=== PATIENT | male | born 1975 | race Caucasian/White ===

== ENCOUNTER 2020-07-27 01:23 | Emergency (ER) | payer SELFPAY ==
[~2020-07-27] VITALS: Ht 175.3 cm; Wt 81.6 kg
[2020-07-27] MEDS ORDERED: CEFTRIAXONE SOD 1 GM VIAL IM ONE (01:45)
--- NOTE | 2020-07-27 01:49 | Emergency Department Note ---
History of Present Illnes History of Present Illness Chief Complaint: Skin Rash or Abscess History of Present Illness This is a 44 year old male Chief Complaint Comment PT C/O KNOT/ABSCESS TO THE MEDIAL ASPECT OF LEFT CALF, STATES ABOUT A WEEK AGO NOTICED THE AREA "LIKE A PIMPLE" HE POPPED IT AND IT OOZED FOR SEVERAL DAYS, LEG AND AANKLE WERE SWOLLEN BUT BETTER, PT STATES THE ABSESS AREA AGAIN GO BIG AND RED SO BECAME CONCERNED . Historian: Patient Arrival Mode: Car Onset (how long ago): day(s) (2) Location: left leg Quality: reddness Radiation: Denies non-radiation, Denies back, Denies neck, Denies extremity, Denies abdomen, Denies periumbilical, Denies flank, Denies proximal, Denies distal, Denies other Severity: mild Onset quality: gradual Duration (how long): day(s) (2) Timing of current episode: constant Progression: waxing and waning Chronicity: new Context: Denies recent illness, Denies recent surgery, Denies recent immobilization, Denies recent travel, Denies trauma/injury, Denies new medications, Denies hx of DVT/PE, Denies non-compliance w/ medications, Denies other Relieving factors: none Exacerbating factors: none Associated symptoms: Denies denies other symptoms, Denies confusion, Denies chest pain, Denies cough, Denies diaphoresis, Denies fever/chills, Denies headaches, Denies loss of appetite, Denies malaise, Denies nausea/vomiting, Denies rash, Denies seizure, Denies shortness of breath, Denies syncope, Denies weakness, Denies other Treatments prior to arrival: none Past Medical/Family History Physician Review I have reviewed the patient's past medical and family history. Any updates have been documented here. Past Medical History Recent Fever: No Clinical Suspicion of Infectio: No New/Unexplained Change in Ment: No Past Medical History: None Past Surgical History: None Social History Smoking Cessation: Current every day smoker Counseling Performed: No Alcohol Use: None Any Illegal Drug Use: No Physically hurt or threatened: No Review of Systems Review of Systems Constitutional: Reports no symptoms EENTM: Reports no symptoms Cardiovascular: Reports no symptoms Respiratory: Reports no symptoms; Denies as per HPI, Denies change in phlegm color, Denies chest congestion, Denies cough, Denies hemoptysis, Denies excessive phlegm production, Denies pain on inspiration, Denies pain with cough, Denies dyspnea, Denies dyspnea on exertion, Denies snoring, Denies stridor, Denies wheezing, Denies other Gastrointestinal: Reports no symptoms; Denies as per HPI, Denies abdominal pain, Denies constipation, Denies diarrhea, Denies nausea, Denies vomiting, Denies other Genitourinary: Reports no symptoms Musculoskeletal: Reports no symptoms Integumentary: Reports as per HPI Neurological: Reports no symptoms; Denies as per HPI, Denies headache, Denies numbness, Denies paresthesia, Denies pre-existing deficit, Denies seizure, Denies tingling, Denies tremors, Denies weakness, Denies other Psychological: Reports no symptoms; Denies as per HPI, Denies anxiety, Denies depressed, Denies emotional problems, Denies other Endocrine: Reports no symptoms Hematological/Lymphatic: Reports no symptoms Physical Exam Related Data Allergies: Coded Allergies: penicillin G (Verified Allergy, Unknown, 07/27/20) Triage Vital Signs Vital Signs Date Time Temp Pulse Resp B/P (MAP) Pulse Ox O2 Delivery O2 Flow Rate FiO2 07/27/20 01:30 98.4 104 18 190/100 98 Room Air Vital signs reviewed: Yes Physical Exam CONSTITUTIONAL Constitutional: Present well-developed, Present well-nourished HENT HENT: Present normocephalic, Present atraumatic, Present oropharynx clear/moist, Present nose normal; Absent oropharynx normal, Absent mucosae dry, Absent nasal discharge, Absent nasal congestion, Absent rhinorrhea, Absent oropharyngeal exudate, Absent tonsillar excudate, Absent pharynx abnormal, Absent erythema, Absent dentition normal, Absent dental caries, Absent other HENT L/R: Present left ext ear normal, Present right ext ear normal EYES Eyes: Reports PERRL, Reports conjunctivae normal; Denies EOM normal, Denies lids normal, Denies left eye discharge, Denies right eye discharge, Denies scleral icterus, Denies other NECK Neck: Present ROM normal; Absent supple, Absent thyromegaly, Absent tracheal deviation, Absent stridor, Absent JVD, Absent cervical adenopathy, Absent carotid bruit, Absent other PULMONARY Pulmonary: Present effort normal, Present breath sounds normal; Absent respiratory distress, Absent rales, Absent rhonchi, Absent chest tenderness, Absent other CARDIOVASCULAR Cardiovascular: Present regular rhythm, Present heart sounds normal, Present capillary refill normal, Present normal rate GASTROINTESTINAL Abdominal: Present soft, Present nontender, Present bowel sounds normal; Absent distension, Absent tender, Absent guarding, Absent mass, Absent rebound, Absent hernia, Absent left CVA tenderness, Absent right CVA tenderness, Absent other GENITOURINARY Genitourinary: Present exam deferred; Absent penis normal, Absent rectum normal, Absent prostate normal, Absent guaiac result, Absent penis tenderness, Absent other SKIN Skin: Present warm, Present dry, Present erythema (left leg) MUSCULOSKELETAL Musculoskeletal: Present ROM normal; Absent edema, Absent deformity, Absent tenderness, Absent swelling, Absent other NEUROLOGICAL Neurological: Present alert, Present oriented x 3, Present no gross motor or sensory deficits; Absent DTRs normal, Absent cranial nerve deficit, Absent sensory deficit, Absent abnormal DTRs, Absent abnormal coordination, Absent abnormal gait, Absent weakness, Absent other PSYCHOLOGICAL Psychological: Present mood/affect normal, Present judgement normal Assessment & Plan Medical Decision Making MDM cellulitis erysipelis Reassessment Reassessment time: 01:48 Reassessment same Assessment & Plan Final Impression: (1) Cellulitis of left leg Depart Disposition: HOME, SELF-CARE Last Vital Signs Date Time Temp Pulse Resp B/P (MAP) Pulse Ox O2 Delivery O2 Flow Rate FiO2 07/27/20 01:30 98.4 104 18 190/100 98 Room Air Medications in the ED Ceftriaxone Sodium 1 gm ONCE ONCE IM ; Start 07/27/20 at 01:45; Stop 07/27/20 at 01:46; Status UNV MESFIN HUDSON MD Jul 27, 2020 01:49
[2020-07-27] MEDS ORDERED: CLEOCIN HCL150 MG PO (01:52)
[2020-07-27] MEDS ORDERED: CEFTRIAXONE SOD 1 GM VIAL ONE (01:58)
== END 2020-07-27 02:18 | disposition home or self-care (01) ==
LOC: FSED 01:40
DX: L03.116 Cellulitis of left lower limb (principal); F17.210 Nicotine dependence, cigarettes, uncomplicated
CPT/HCPCS: 99282; J0696

== ENCOUNTER 2024-11-09 20:46 | Emergency (ER) | payer OTHER ==
[~2024-11-09] VITALS: Ht 177.8 cm; Wt 96.6 kg
[~2024-11-09 20:46] MED LIST: CLEOCIN HCL150 MG PO
[2024-11-09] MEDS ORDERED: DOXYCYCLINE HY100 MG PO (21:11)
[2024-11-09] MEDS ORDERED: MUPIROCIN22 GM TOP (21:12)
[2024-11-09] MEDS: BACITRACIN ZINC 0.9GM TP ONE (21:21)
[2024-11-09] MEDS: AMLODIPINE BESYLATE 10 MG TAB PO ONE (21:48)
[2024-11-09] MEDS: CLONIDINE HCL 0.1 MG TAB PO ONE (21:48)
[2024-11-09 22:33] VITALS: PULSE 86; RESP 16; TEMP 98.7
[2024-11-09 22:38] VITALS: BP 172/83; PULSE 86; RESP 16; O2SAT 97
[2024-11-09] MEDS ORDERED: AMLODIPINE BESYL5 MG PO (22:57)
== END 2024-11-09 22:42 | disposition home or self-care (01) ==
LOC: FSED 20:54
DX: L97.829 Non-pressure chronic ulcer of other part of left lower leg with unspecified severity (principal); L97.819 Non-pressure chronic ulcer of other part of right lower leg with unspecified severity; I87.8 Other specified disorders of veins; I10 Essential (primary) hypertension
CPT/HCPCS: 99284

== ENCOUNTER 2025-02-14 14:13 | Emergency (ER) | payer OTHER ==
[~2025-02-14] VITALS: Ht 177.8 cm; Wt 96.2 kg
[~2025-02-14 14:13] MED LIST changes: +AMLODIPINE BESYL5 MG PO; +DOXYCYCLINE HY100 MG PO; +MUPIROCIN22 GM TOP
[2025-02-14 15:26] VITALS: PULSE 93; RESP 16; TEMP 99.3; O2SAT 97
== END 2025-02-14 15:26 | disposition home or self-care (01) ==
LOC: FSED 14:20
DX: R50.9 Fever, unspecified (principal); U07.1 COVID-19; B34.9 Viral infection, unspecified; R05.9 Cough, unspecified; I10 Essential (primary) hypertension; F17.210 Nicotine dependence, cigarettes, uncomplicated
CPT/HCPCS: 0223U; 87400; 99283